=== PATIENT | female | born 1990 | race Two or more races ===

== ENCOUNTER 2024-04-10 13:07 | Emergency (ER) | payer OTHER, SELFPAY ==
[2024-04-10 13:15] VITALS: BP 112/79; PULSE 70; RESP 18; TEMP 36.5; O2SAT 99; BMI 38.2
--- NOTE | 2024-04-10 14:34 | ED_ITS ---
HPI - General Adult General Chief complaint: Skin/Abscess/Foreign Body Stated complaint: fall, leg injury Time Seen by Provider: 04/10/24 14:16 Source: patient Mode of arrival: ambulatory Limitations: no limitations History of Present Illness HPI narrative: 34-year-old female coming in today approximately 15 hours after falling while walking her dog last night. Suffered a laceration to the anterior right leg. Related Data Home Medications ?Medication ?Instructions ?Recorded ?Confirmed No Known Home Medications 04/10/24 04/10/24 Allergies Allergy/AdvReac Type Severity Reaction Status Date / Time ibuprofen Allergy Severe Verified 04/10/24 13:15 Sulfa (Sulfonamide Allergy Intermediate Rash Verified 04/10/24 13:15 Antibiotics) Review of Systems Status of ROS: Reports: 6 or more systems reviewed and unremarkable except as noted in History and below Exam Narrative: Exam Narrative: Well-nourished well-developed patient, extremely anxious. Alert and oriented. Answers questions appropriately. HEENT: Normocephalic atraumatic. Extraocular muscles are intact. Conjunctivae are moist without any icterus noted. Moist mucous membranes. Extremities: Patient has a laceration of the anterior right lower extremity just distal to the knee. Lacerations approximately 1/2 cm in length. She has surrounding abrasion to the area. Laceration penetrates through the dermis into the subcutaneous tissue, does not penetrate through the subcutaneous tissue. There is a small piece of dermis that is missing so the laceration is gaping open quite a bit. The knee joint itself is without trauma. There is no joint effusion felt. There is no pain with compression of the patella. She has good range of motion. Const: Vital Signs, click to edit/add: Vital Signs - 24 hr 04/10/24 13:15 Temperature 97.7 F Pulse Rate [Pulse Oximeter] 70 Respiratory Rate 18 Blood Pressure [Ri ght Upper Arm] 112/79 Pulse Oximetry 99 Oxygen Delivery Me thod Room Air Course Course ED Course: Discussed the putting these lacerations back together after such a long time does increase the risk of infection, however, given the depth and width of the laceration I do think that putting it back together is necessary. Patient understands the risk. Wound was anesthetized with lidocaine. The wound was then thoroughly irrigated and explored. Three sutures with 3-0 Ethilon were placed without complication and with great skin approximation. Vital Signs Vital signs: Initial Vital Signs Temperature 97.7 F 04/10/24 13:15 Temperature Source Temporal Artery Scan 04/10/24 13:15 Pulse Rate 70 04/10/24 13:15 Pulse Rhythm Regular 04/10/24 13:15 Respiratory Rate 18 04/10/24 13:15 Blood Pressure 112/79 04/10/24 13:15 Blood Pressure Mean 90 04/10/24 13:15 Blood Pressure Position Sitting 04/10/24 13:15 Pulse Oximetry 99 04/10/24 13:15 Oxygen Delivery Method Room Air 04/10/24 13:15 Vital Signs Temperature 97.7 F 04/10/24 13:15 Pulse Rate 70 04/10/24 13:15 Respiratory Rate 18 04/10/24 13:15 Blood Pressure 112/79 04/10/24 13:15 Pulse Oximetry 99 04/10/24 13:15 Oxygen Delivery Method Room Air 04/10/24 13:15 Temperature 97.7 F 04/10/24 13:15 Pulse Rate 70 04/10/24 13:15 Respiratory Rate 18 04/10/24 13:15 Blood Pressure 112/79 04/10/24 13:15 Pulse Oximetry 99 04/10/24 13:15 Oxygen Delivery Method Room Air 04/10/24 13:15 Medical Decision Making MDM Narrative Medical decision making narrative: Laceration, treated per above. Discharge Plan Discharge Clinical Impression: Laceration Patient Disposition: Home, Self-Care Condition: Improved Additional Instructions: Keep wound clean and dry. Do not soak such as taking baths, swimming. Follow- up in approximately 7-10 days for suture removal with your primary care provider. Watch for signs and symptoms of infection including increasing redness of the area, purulent drainage, or fever. If this occurs follow-up righ t away with your doctor or return to the ER. Prescriptions: No Action No Known Home Medications Stand Alone Forms: Fetch [employer] Info Instructions
== END 2024-04-10 14:54 | disposition home or self-care (01) ==
PROVIDERS: Emergency Provider Family Medicine
DX: S81.811A Laceration without foreign body, right lower leg, initial encounter (principal); W26.9XXA Contact with unspecified sharp object(s), initial encounter
CPT/HCPCS: 12001; 99283; 99284